=== PATIENT | male | born 1980 | race Caucasian/White ===

== ENCOUNTER → 2023-12-10 09:29 | Outpatient (REF) | payer BC, SELFPAY ==
--- NOTE | 2023-12-10 09:38 | CA_ITS ---
Acquisition Time: 2023-12-10 09:49:34 Total Exercise Time: 00:10:25 Test Indications: CP Medications: SEE H Protocol: JOHN Max HR: 160 BPM 90% of Pred: 177 BPM Max BP: 164/058 mmHG Max Work Load: 12.4 METS Exercise stress test exercise 10 min 25 sec of John protocol achieving 90% MPHR, with mild SOB at peak, without arrhythmais, with normotensive response to exercise, without EKG changes. Test reviewed with Dr. Sim. Referred By: Joni Reeves Overread By: Rhina Khan
== END ==
LOC: HO.CARD 09:29
PROVIDERS: PCP Internal Medicine; Visit Provider Internal Medicine
DX: R07.2 Precordial pain (principal)
CPT/HCPCS: 93017

== ENCOUNTER → 2023-12-10 09:38 | Outpatient (BNV) | payer BC, SELFPAY | PROVIDERS: PCP Internal Medicine; Visit Provider Nurse Practitioner | DX: R06.02 Shortness of breath (principal); R07.9 Chest pain, unspecified | CPT/HCPCS: 93016; 93018 ==